=== PATIENT | male | born 1945 | race Caucasian/White ===

== ENCOUNTER → 2017-04-15 11:09 | Emergency (ER) | payer OTHER, MEDICARE, BC ==
--- NOTE | 2017-04-16 19:26 | ER ---
ADMIT: 04/15/2017 RM/LOC: ER [facility] MR#: [id number] [address] [id number] DIANE ULIS J [address] [place] [address] [place] [address] Emergency Room Report SEX: M AGE: 72 : 1945 DATE: 04/15/2017 ADDENDUM: CHIEF COMPLAINT: Laceration to leg. HISTORY OF PRESENT ILLNESS: This is a 72-year-old male who has a laceration to his right lower leg. He walked into a piece of steel. Please see procedure note for suture repair. CLINICAL IMPRESSION: Laceration to the right leg. DISPOSITION: Told him to keep it clean and dry. Use Tylenol and Motrin for pain. Could also use ice if it is very painful and have suture removal in 10 to 14 days. MONALISA Kimbrough / Jean Claude Guevara MD / mike JOB #: [id number] CC: Jean Claude Guevara MD, Attending Physician Suman Cunningham MD, Family Physician
== END | disposition home or self-care (01) ==
LOC: ER 11:09
PROC: 0HQKXZZ Repair Right Lower Leg Skin, External Approach (ICD-10-PCS; principal; 2017-04-15)
DX: S81.811A Laceration without foreign body, right lower leg, initial encounter (principal); Z23 Encounter for immunization; W22.8XXA Striking against or struck by other objects, initial encounter